=== PATIENT | female | born 1960 | race Caucasian/White ===

== ENCOUNTER 2017-02-05 23:45 | Observation (INO) | payer BC ==
[2017-02-06 00:30] LABS: Hematocrit 37 % (35-47); Hemoglobin 12.9 g/dl (12.0-16.0); Mean Corpuscular HGB Conc 34 g/dl (31-36); Mean Corpuscular Hemoglobin 31 pg (27-31); Mean Corpuscular Volume 89 fL (80-97); Mean Platelet Volume 9 um3 (7.4-10.4); Red Blood Count 4.21 10^6/ul (4.0-5.4); Red Cell Distribution Width 12 % (10.5-15); White Blood Count 9.6 10^3/ul (3.5-10.8)
[2017-02-06 00:47] LABS: Albumin 4.1 g/dL (3.2-5.2); Calcium 9.3 mg/dL (8.6-10.3); EGFR African American 48.2 (>60); EGFR Non-African American 37.5 (>60); Globulin 3.2 g/dL (2-4); Magnesium 2.1 mg/dL (1.9-2.7); Potassium 3.7 mmol/L (3.5-5.0); Total Bilirubin 0.3 mg/dL (0.2-1.0); Total Protein 7.3 g/dL (6.4-8.9)
[2017-02-06 01:32] LABS: Troponin I 2.91 ng/mL (<0.04)
[2017-02-06] MEDS ORDERED: Enoxaparin(*) 80 MG/0.8 ML SYR SUBCUT ONE (01:34)
[2017-02-06] MEDS ORDERED: Clopidogrel TAB* 300 MG PO ONE (01:34)
[2017-02-06] MEDS ORDERED: Metoprolol Tartrate IV* 1 MG/ML 5 ML VIAL IV ONE (01:43)
[2017-02-06] MEDS ORDERED: Albuterol 2.5 MG/3 ML NEB.SOL* (0.083%) INH PRN (02:22)
[2017-02-06] MEDS ORDERED: Acetaminophen TAB* 325 MG PO PRN (02:22)
[2017-02-06] MEDS ORDERED: Ondansetron INJ* 2 MG/ML VIAL IV PRN (02:22)
[2017-02-06] MEDS ORDERED: CMCS: Melatonin (NF) 3 MG TAB PO PRN (02:22)
[2017-02-06] MEDS ORDERED: NS 0.9% 1000 ML* 1,000 ML IV SCH (02:30)
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
--- NOTE | 2017-02-06 03:40 | ED ---
Devon Bhatt Benjamin, scribed for Iram Flood MD on 02/06/17 at 0028 . HPI Chest Pain - HPI Summary HPI Summary: 56yo female BIBA c/o right sided chest pressure. Pt states that she has a pinched nerve in her neck that causes pain on her right side, including right neck, right back, right arm, right leg, and right chest. However, pt has been having this pain for 2 weeks, but tonight pain has gotten a lot worse. Movement and deep breaths worsens the pain and pt reports night sweats. Pain is gone now. Pt was given ASA and NTG by EMS en route, which resolved her CP. Pt did have diaphoresis and SOB with the pain. - History of Current Complaint Chief Complaint: EDChestPainROMI Time Seen by Provider: 02/05/17 23:54 Hx Obtained From: Patient, Family/Natural [employer] Clerk - partner Onset/Duration: Started Weeks Ago, Still Present, Worse Since - tonight Timing: Constant Initial Severity: Moderate Current Severity: None Pain Intensity: 0 Pain Scale Used: 0-10 Numeric Chest Pain Location: Right Anterior Chest Pain Radiates: Yes Chest Pain Radiates To:: Back - right, Arm - right Associated Signs and Symptoms: Positive: Chest Pain, Diaphoresis - Allergy/Home Medications Allergies/Adverse Reactions: Allergies Allergy/AdvReac Type Severity Reaction Status Date / Time No Known Allergies Allergy Verified 02/06/17 00:12 Home Medications: Home Medications NK [No Home Medications Reported] 02/06/17 [History Confirmed 02/06/17] PMH/Surg Hx/FS Hx/Imm Hx Endocrine/Hematology History: Denies: Hx Diabetes, Hx Thyroid Disease Cardiovascular History: Denies: Hx Hypertension Respiratory History: Denies: Hx Asthma, Hx Chronic Obstructive Pulmonary Disease (COPD) GI History: Denies: Hx Ulcer - Surgical History Surgery Procedure, Year, and Place: L leg surgeries x 6. Infectious Disease History: No Infectious Disease History: Denies: Hx Clostridium Difficile, Hx Hepatitis, Hx Human Immunodeficiency Virus (HIV), Hx of Known/Suspected MRSA, Hx Shingles, Hx Tuberculosis, Hx Known/ Suspected VRE, Hx Known/Suspected VRSA, History Other Infectious Disease, Traveled Outside the [place] in Last 30 Days - Family History Known Family History: Negative: Seizure Disorder, Blood Disorder - Social History Lives: With Family Alcohol Use: Weekly Substance Use Type: Reports: None Smoking Status (MU): Former Smoker Amount Used/How Often: 1/2 PPD Review of Systems Positive: Skin Diaphoresis Eyes: Negative ENT: Negative Positive: Chest Pain - radiates to RUE and back Positive: Shortness Of Breath Gastrointestinal: Negative Genitourinary: Negative Musculoskeletal: Negative Skin: Negative Neurological: Negative Psychological: Normal All Other Systems Reviewed And Are Negative: Yes Physical Exam - Summary Physical Exam Summary: VITAL SIGNS: Reviewed. GENERAL: Patient is a well-developed and nourished FEMALE who is lying comfortable in the stretcher. Patient is not in any acute respiratory distress. HEAD AND FACE: No signs of trauma. No ecchymosis, hematomas or skull depressions. No sinus tenderness. EYES: PERRLA, EOMI x 2, No injected conjunctiva, no nystagmus. EARS: Hearing grossly intact. Ear canals and tympanic membranes are within normal limits. MOUTH: Oropharynx within normal limits. NECK: Supple, trachea is midline, no adenopathy, no JVD, no carotid bruit, no c- spine tenderness, neck with full ROM. CHEST: Symmetric, no tenderness at palpation LUNGS: Clear to auscultation bilaterally. No wheezing or crackles. CVS: Tachycardia, S1 and S2 present, no murmurs or gallops appreciated. ABDOMEN: Soft, non-tender. No signs of distention. No rebound no guarding, and no masses palpated. Bowel sounds are normal. EXTREMITIES: FROM in all major joints, no edema, no cyanosis or clubbing. NEURO: Alert and oriented x 3. No acute neurological deficits. Speech is normal and follows commands. SKIN: Dry and warm Triage Information Reviewed: Yes Vital Signs On Initial Exam: Initial Vitals BP 136/80 02/05/17 23:50 Vital Signs Reviewed: Yes - [place] Coma Scale Coma Scale Total: 15 Diagnostics - Vital Signs Vital Signs Temp Pulse Resp BP Pulse Ox 02/06/17 00:12 96 02/06/17 00:02 97.9 F 95 16 125/67 96 02/06/17 00:01 104 20 125/67 94 02/06/17 00:00 104 18 94 02/05/17 23:52 96 21 94 02/05/17 23:50 136/80 - Laboratory Lab Results: Lab Results 02/06/17 02/06/17 02/06/17 Range/Units 00:17 00:17 00:17 WBC 9.6 (3.5-10.8) 10^3/ul RBC 4.21 (4.0-5.4) 10^6/ul Hgb 12.9 (12.0-16.0) g/dl Hct 37 (35-47) % MCV 89 (80-97) fL MCH 31 (27-31) pg MCHC 34 (31-36) g/dl RDW 12 (10.5-15) % Plt Count 251 (150-450) 10^3/ul MPV 9 (7.4-10.4) um3 Neut % (Auto) 68.3 (38-83) % Lymph % (Auto) 21.4 L (25-47) % [place] % (Auto) 7.8 (1-9) % Eos % (Auto) 1.8 (0-6) % Baso % (Auto) 0.7 (0-2) % Absolute Neuts (auto) 6.6 (1.5-7.7) 10^3/ul Absolute Lymphs (auto) 2.0 (1.0-4.8) 10^3/ul Absolute Monos (auto) 0.7 (0-0.8) 10^3/ul Absolute Eos (auto) 0.2 (0-0.6) 10^3/ul Absolute Basos (auto) 0.1 (0-0.2) 10^3/ul Absolute Nucleated RBC 0 10^3/ul Nucleated RBC % 0 INR (Anticoag Therapy) 0.86 (0.77-1.02) APTT 27.5 (26.0-36.3) seconds D-Dimer, Quantitative 294 H (Less Than 230) ng/mL Sodium 135 (133-145) mmol/L Potassium 3.7 (3.5-5.0) mmol/L Chloride 102 (101-111) mmol/L Carbon Dioxide 23 (22-32) mmol/L Anion Gap 10 (2-11) mmol/L BUN 29 H (6-24) mg/dL Creatinine 1.45 H (0.51-0.95) mg/dL Est GFR ( Amer) 48.2 (>60) Est GFR (Non-Af Amer) 37.5 (>60) BUN/Creatinine Ratio 20.0 (8-20) Glucose 133 H (70-100) mg/dL Calcium 9.3 (8.6-10.3) mg/dL Magnesium 2.1 (1.9-2.7) mg/dL Total Bilirubin 0.30 (0.2-1.0) mg/dL AST 30 (13-39) U/L ALT 17 (7-52) U/L Alkaline Phosphatase 115 H (34-104) U/L Troponin I 2.91 H* (<0.04) ng/mL B-Natriuretic Peptide ( - 100) pg/mL Total Protein 7.3 (6.4-8.9) g/dL Albumin 4.1 (3.2-5.2) g/dL Globulin 3.2 (2-4) g/dL Albumin/Globulin Ratio 1.3 (1-3) 02/06/17 Range/Units 00:17 WBC (3.5-10.8) 10^3/ul RBC (4.0-5.4) 10^6/ul Hgb (12.0-16.0) g/dl Hct (35-47) % MCV (80-97) fL MCH (27-31) pg MCHC (31-36) g/dl RDW (10.5-15) % Plt Count (150-450) 10^3/ul MPV (7.4-10.4) um3 Neut % (Auto) (38-83) % Lymph % (Auto) (25-47) % [place] % (Auto) (1-9) % Eos % (Auto) (0-6) % Baso % (Auto) (0-2) % Absolute Neuts (auto) (1.5-7.7) 10^3/ul Absolute Lymphs (auto) (1.0-4.8) 10^3/ul Absolute Monos (auto) (0-0.8) 10^3/ul Absolute Eos (auto) (0-0.6) 10^3/ul Absolute Basos (auto) (0-0.2) 10^3/ul Absolute Nucleated RBC 10^3/ul Nucleated RBC % INR (Anticoag Therapy) (0.77-1.02) APTT (26.0-36.3) seconds D-Dimer, Quantitative (Less Than 230) ng/mL Sodium (133-145) mmol/L Potassium (3.5-5.0) mmol/L Chloride (101-111) mmol/L Carbon Dioxide (22-32) mmol/L Anion Gap (2-11) mmol/L BUN (6-24) mg/dL Creatinine (0.51-0.95) mg/dL Est GFR ( Amer) (>60) Est GFR (Non-Af Amer) (>60) BUN/Creatinine Ratio (8-20) Glucose (70-100) mg/dL Calcium (8.6-10.3) mg/dL Magnesium (1.9-2.7) mg/dL Total Bilirubin (0.2-1.0) mg/dL AST (13-39) U/L ALT (7-52) U/L Alkaline Phosphatase (34-104) U/L Troponin I (<0.04) ng/mL B-Natriuretic Peptide 135 H ( - 100) pg/mL Total Protein (6.4-8.9) g/dL Albumin (3.2-5.2) g/dL Globulin (2-4) g/dL Albumin/Globulin Ratio (1-3) Result Diagrams: 02/06/17 00:17 02/06/17 00:17 Lab Statement: Any lab studies that have been ordered have been reviewed, and results considered in the medical decision making process. - Radiology CXR Xray Interpretation: No Acute Changes Radiology Interpretation Completed By: ED Physician - EKG 0023. Cardiac Rate: NL EKG Rhythm: Sinus Rhythm - 85bpm ST Segment: Normal EKG Interpretation: ST depression&T wave inversion in ok-lateral leads,Q wave in V1,V2, 0208. Cardiac Rate: NL EKG Rhythm: Sinus Rhythm ST Segment: Non-Specific Ectopy: None EKG Interpretation: ST depression&T wave inversion in the anterolateral leads,Q wave in V1,V2. EKG Comparison: No Significant Change - from previous EKG. Chest Pain Course/Dx - Course Course Of Treatment: Pts troponin is 2.91. Pt has been pain free since her ED arrival. Pt has been pain free in the ED. NO SOB. Pt's EKG did show Qwave in the septal leads that is C/W with subacute /Old OH. Pt has acute ischemic changes in the anterolateal leads that is C/W ischemia. Spoke to Dr. Davis (hospitalist) regarding pt's case at 0145 hour. Pt will be admitted. He will come to evaluate the pt. Time: 0230. Repeat EKG showed no change from the first EKG. - Diagnoses Provider Diagnoses: NSTEMI (non-ST elevated myocardial infarction), Acute OH anterior lateral subsequent episode care - Critical Care Time Critical Care Time: 30-74 min - 40 minutes Discharge - Discharge Plan Condition: Critical Disposition: ADMITTED TO [facility] The documentation as recorded by the Devon gay Benjamin accurately reflects the service I personally performed and the decisions made by , Iram Flood MD.
[2017-02-06 07:40] LABS: BUN/Creatinine Ratio 21.9 (8-20); Calcium 8.8 mg/dL (8.6-10.3); EGFR Non-African American 54.4 (>60); Potassium 3.8 mmol/L (3.5-5.0)
[2017-02-06 07:44] LABS: Troponin I 7.14 ng/mL (<0.04)
--- NOTE | 2017-02-06 07:47 | RAD ---
INDICATION: Chest pain COMPARISON: August 22, 2013 TECHNIQUE: An AP portable view obtained at 0020 hours is submitted. FINDINGS: Bones/Soft Tissues: There are no acute bony findings. Cardiomediastinal: The cardiomediastinal silhouette is normal. Lungs: There are no infiltrates. There is minimal left basilar atelectasis. Pleura: There are no pleural effusions. Other: None IMPRESSION: Minimal left basilar atelectasis, otherwise negative.
--- NOTE | 2017-02-06 08:45 | ECHO ---
Patient: BRITTNEY AL Rec#: [id number] : 1960 Date: 02/06/2017 Age: 56y Height: 165.1 cm / 65.0 in Weight: 71.21 kg / 156.9 lbs Sex: F BSA: 1.78 Room#: [facility] Admit Date#: 02/06/2017 Type: Inpatient Referring: Jose Davis MD Reading: Jose Carlos Malone MD Fire Observer: Loan Aguilar RDCS CC: Thania Solo MD Transthoracic Echocardiogram Indication: NSTEMI BP: 98/49 HR: 74 Rhythm: NSR Findings History: Former smoker, pinched nerve in right neck with pain radiating to right chest, MVP. Technical Comments: The study quality is good. Completed at 0820. Left Ventricle: The left ventricular chamber size is normal. There is no left ventricular hypertrophy. There is a focal wall motion abnormality present.The mid to distal anterior, anteroseptal wall are significantly hypokinetic with apical akinesis. There is moderately decreased left ventricular systolic function. The estimated ejection fraction is 35-40%. Abnormal left ventricular diastolic function is observed. Abnormal left ventricular diastolic filling is observed, consistent with impaired relaxation. Left Atrium: The left atrium is mildly dilated. Right Ventricle: The right ventricular cavity size is normal. The right ventricular global systolic function is normal. Right Atrium: The right atrial cavity size is normal. Aortic Valve: The aortic valve is trileaflet. The aortic valve leaflets are mildly thickened. There is moderate aortic regurgitation. There is no evidence of aortic stenosis. Mitral Valve: The mitral valve leaflets are mildly thickened. There is mild mitral regurgitation. There is no evidence of mitral stenosis. Tricuspid Valve: The tricuspid valve leaflets are normal. There is trace to mild tricuspid regurgitation. The right ventricular systolic pressure is estimated at 31 mmHg. There is evidence that pulmonary hypertension may be underestimated. There is no tricuspid stenosis. Pulmonic Valve: The pulmonic valve structure is not well visualized. There is trace to mild pulmonic regurgitation. There is no pulmonic stenosis. Pericardium: There is no significant pericardial effusion. Aorta: There is no dilatation of the ascending aorta. There is no dilatation of the aortic arch. The aortic root is normal in size. Pulmonary Artery: The main pulmonary artery is not well visualized. Venous: The inferior vena cava appears normal in size. There is less than 50% respiratory change in the inferior vena cava dimension. Conclusions The mid to distal anterior, anteroseptal wall are significantly hypokinetic with apical akinesis. There is moderately decreased left ventricular systolic function. The estimated ejection fraction is 35-40%. Abnormal left ventricular diastolic filling is observed, consistent with impaired relaxation. The left atrium is mildly dilated. There is moderate aortic regurgitation. There is mild mitral regurgitation. There is trace to mild tricuspid regurgitation. The right ventricular systolic pressure is estimated at 31 mmHg. There is evidence that pulmonary hypertension may be underestimated. There is trace to mild pulmonic regurgitation. No reports of prior studies are offered for comparison. Measurements Name Value Normal Range RVIDd (AP) 2D 2.4 cm (0.9 - 2.6) RVDdMajor (2D) 3 cm (2.2 - 4.4) RVAW (2D) 0.5 cm (0.2 - 0.5) RAd ISD 4CH 4.1 cm (3.4 - 4.9) RA (A4C)W 3.2 cm (2.9 - 4.6) IVSd (2D) 1 cm (0.6 - 1) LVPWd (2D) 0.9 cm (0.6 - 1) LVIDd (2D) 4.1 cm (3.6 - 5.4) LVIDs (2D) 3.01 cm - LV FS (2D) 26 % (25 - 45) Aortic Annulus 1.6 cm (1.4 - 2.6) Ao root diameter (2D) 2.9 cm (2.1 - 3.5) Ascending Ao 3.1 cm (2.1 - 3.4) Aortic arch 2.4 cm (1.8 - 3.4) LA dimension (AP) 2D 3.2 cm (2.3 - 3.8) LAd ISD 4CH 5.1 cm (2.9 - 5.3) LA ISD 4CH W 4.1 cm (2.5 - 4.5) Name Value Normal Range LA ESV SP 4CH (A/L) 61 ml - LA ESV SP 2CH (A/L) 60 ml - LA ESV BP (A/L) 62 ml - LA ESV BP (A/L) index 35 ml/m2 - LA ESV SP 4CH (MOD) 57 ml - LA ESV SP 2CH (MOD) 59 ml - Name Value Normal Range MV E-wave Vmax 0.68 m/sec - MV deceleration time 189.5 msec - MV A-wave Vmax 0.84 m/sec - MV E:A ratio 0.8 ratio - LV septal e' Vmax 0.06 m/sec - LV lateral e' Vmax 0.07 m/sec - LV E:e' septal ratio 11.33 ratio - LV E:e' lateral ratio 9.71 ratio - Name Value Normal Range AV Vmax 1.66 m/sec - AV VTI 35.1 cm - AV peak gradient 10.99 mmHg - AV mean gradient 6.23 mmHg - LVOT Vmax 1.24 m/sec - LVOT VTI 27.2 cm - LVOT peak gradient 6.16 mmHg - LVOT mean gradient 3.64 mmHg - AR PHT 307 msec - AR peak gradient 48.15 mmHg - Name Value Normal Range TR Vmax 2.4 m/sec - TR peak gradient 23 mmHg - RAP 8 mmHg - RVSP 31 mmHg - IVC diameter 1.46 cm - Name Value Normal Range PV Vmax 1.01 m/sec - PV peak gradient 4.14 mmHg -
[2017-02-06] MEDS ORDERED: Docusate CAP* 100 MG PO SCH (09:00)
[2017-02-06] MEDS ORDERED: Metoprolol Tartrate TAB* 25 MG PO SCH (09:00)
[2017-02-06] MEDS ORDERED: Clopidogrel TAB* 75 MG PO SCH (09:00)
[2017-02-06] MEDS ORDERED: Aspirin EC Low Dose* 81 MG TAB.EC PO SCH (09:00)
[2017-02-06] MEDS ORDERED: Diazepam TAB(*) 5 MG ONE (09:49)
[2017-02-06] MEDS ORDERED: Heparin 2 UNITS/ML IVPREMIX* 2,000 ML IV ONE (10:10)
[2017-02-06] MEDS ORDERED: Lidocaine 1% INJ* 10 MG/ML 30 ML SDV ONE (10:10)
[2017-02-06] MEDS ORDERED: Iodixanol* (CONTRAST) 320 MG/ML 100 ML SDV ONE (10:10)
[2017-02-06] MEDS ORDERED: Midazolam* 1 MG/ML 10 ML VIAL (10 MG) ONE (10:12)
[2017-02-06] MEDS ORDERED: fentaNYL* 50 MCG/ML 2 ML VIAL (100 MCG VIAL) ONE (10:12)
--- NOTE | 2017-02-06 10:14 | PN ---
Subjective Date of Service: 02/06/17 Interval History: Pt is feeling well. She states the chest pain has been resolved since she received nitro with EMS. She denies any SOB. She is prepared to go to carediac catheterization this AM. She is slightly nervous. Objective Active Medications: Acetaminophen (Tylenol Tab*) 650 mg PO Q6H PRN PRN Reason: FEVER/PAIN Last Admin: 02/06/17 04:12 Dose: 650 mg Albuterol (Ventolin 2.5 Mg/3 Ml Neb.Viola*) 2.5 mg INH Q2H PRN PRN Reason: SOB/WHEEZING Aspirin (Aspirin Ec Low Dose*) 81 mg PO DAILY [facility] Last Admin: 02/06/17 07:36 Dose: 81 mg Clopidogrel Bisulfate (Plavix Tab*) 75 mg PO DAILY [facility] Last Admin: 02/06/17 07:36 Dose: 75 mg Docusate Sodium (Colace Cap*) 200 mg PO BID [facility] Last Admin: 02/06/17 09:17 Dose: 200 mg Sodium Chloride (Ns 0.9% 1000 Ml*) 1,000 mls @ 100 mls/hr IV PER RATE [facility] Last Admin: 02/06/17 07:47 Dose: 100 mls/hr Melatonin (Melatonin (Nf)) 3 mg PO BEDTIME PRN; Protocol PRN Reason: Sleep Metoprolol Tartrate (Lopressor Tab*) 25 mg PO BID [facility] Last Admin: 02/06/17 09:17 Dose: 25 mg Ondansetron HCl (Zofran Inj*) 4 mg IV Q6H PRN PRN Reason: NAUSEA Vital Signs - 8 hr 02/06/17 02/06/17 02/06/17 02:20 02:25 02:30 Temperature Pulse Rate 81 80 80 Respiratory 15 16 15 Rate Blood Pressure 111/68 121/75 110/66 (mmHg) O2 Sat by Pulse 97 98 98 Oximetry 02/06/17 02/06/17 02/06/17 02:35 02:40 02:45 Temperature Pulse Rate 81 79 81 Respiratory 15 15 15 Rate Blood Pressure 115/73 116/70 116/66 (mmHg) O2 Sat by Pulse 98 97 98 Oximetry 02/06/17 02/06/17 02/06/17 02:50 02:55 03:00 Temperature Pulse Rate 80 79 84 Respiratory 14 15 14 Rate Blood Pressure 104/65 111/63 113/68 (mmHg) O2 Sat by Pulse 97 97 97 Oximetry 02/06/17 02/06/17 02/06/17 03:05 03:10 03:15 Temperature Pulse Rate 85 81 Respiratory 17 12 Rate Blood Pressure 119/74 100/78 99/81 (mmHg) O2 Sat by Pulse 97 97 Oximetry 02/06/17 02/06/17 02/06/17 03:20 03:30 03:34 Temperature Pulse Rate 81 76 77 Respiratory 15 12 14 Rate Blood Pressure 115/65 116/64 (mmHg) O2 Sat by Pulse 99 98 99 Oximetry 02/06/17 02/06/17 02/06/17 03:35 03:40 03:48 Temperature 98.6 F Pulse Rate 83 82 Respiratory 19 14 Rate Blood Pressure 109/69 112/71 112/71 (mmHg) O2 Sat by Pulse 97 95 Oximetry 02/06/17 02/06/17 02/06/17 03:55 04:00 04:15 Temperature 98.4 F Pulse Rate 78 77 Respiratory 16 19 Rate Blood Pressure 127/61 103/82 (mmHg) O2 Sat by Pulse 96 97 Oximetry 02/06/17 02/06/17 02/06/17 04:30 04:45 05:00 Temperature Pulse Rate 86 76 73 Respiratory 14 15 21 Rate Blood Pressure 104/63 105/54 98/49 (mmHg) O2 Sat by Pulse 97 96 96 Oximetry 02/06/17 02/06/17 02/06/17 05:15 05:30 05:45 Temperature Pulse Rate 75 73 75 Respiratory 17 15 16 Rate Blood Pressure 89/60 86/47 95/48 (mmHg) O2 Sat by Pulse 96 95 96 Oximetry 02/06/17 02/06/17 02/06/17 06:00 06:01 06:15 Temperature Pulse Rate 76 74 Respiratory 15 15 18 Rate Blood Pressure 101/67 (mmHg) O2 Sat by Pulse 96 95 Oximetry 02/06/17 02/06/17 02/06/17 06:30 06:45 07:00 Temperature Pulse Rate 76 72 73 Respiratory 15 18 14 Rate Blood Pressure 102/68 97/57 95/54 (mmHg) O2 Sat by Pulse 97 95 95 Oximetry 02/06/17 02/06/17 02/06/17 07:15 07:30 07:45 Temperature Pulse Rate 85 72 73 Respiratory 16 17 15 Rate Blood Pressure 107/52 104/65 (mmHg) O2 Sat by Pulse 98 95 96 Oximetry 02/06/17 02/06/17 02/06/17 08:00 08:42 08:45 Temperature 98.0 F Pulse Rate 82 76 74 Respiratory 22 15 14 Rate Blood Pressure 103/66 120/66 115/75 (mmHg) O2 Sat by Pulse 98 96 96 Oximetry 02/06/17 02/06/17 02/06/17 09:00 09:15 09:29 Temperature Pulse Rate 72 81 60 Respiratory 12 16 16 Rate Blood Pressure 118/69 123/76 (mmHg) O2 Sat by Pulse 98 99 95 Oximetry 02/06/17 02/06/17 02/06/17 09:30 09:58 10:00 Temperature Pulse Rate 81 74 76 Respiratory 18 16 17 Rate Blood Pressure 130/74 138/79 132/79 (mmHg) O2 Sat by Pulse 98 98 99 Oximetry Oxygen Devices in Use Now: None Appearance: Middle aged female sitting up in bed, NAD Eyes: No Scleral Icterus Ears/Nose/Mouth/Throat: Mucous Membranes Moist Respiratory: Symmetrical Chest Expansion and Respiratory Effort, Clear to Auscultation Cardiovascular: NL Sounds; No Murmurs; No JVD, RRR, No Edema Abdominal: NL Sounds; No Tenderness; No Distention Extremities: No Clubbing, Cyanosis, - - significant scar related to knee reconstructive surgery in past on L Skin: No Rash or Ulcers, No Nodules or Sclerosis Neurological: Alert and Oriented x 3 Result Diagrams: 02/06/17 00:17 02/06/17 06:40 Additional Lab and Data: Lab Results 02/06/17 02/06/17 02/06/17 Range/Units :17 00:17 00:17 WBC 9.6 (3.5-10.8) 10^3/ul RBC 4.21 (4.0-5.4) 10^6/ul Hgb 12.9 (12.0-16.0) g/dl Hct 37 (35-47) % MCV 89 (80-97) fL MCH 31 (27-31) pg MCHC 34 (31-36) g/dl RDW 12 (10.5-15) % Plt Count 251 (150-450) 10^3/ul MPV 9 (7.4-10.4) um3 Neut % (Auto) 68.3 (38-83) % Lymph % (Auto) 21.4 L (25-47) % Snyder % (Auto) 7.8 (1-9) % Eos % (Auto) 1.8 (0-6) % Baso % (Auto) 0.7 (0-2) % Absolute Neuts (auto) 6.6 (1.5-7.7) 10^3/ul Absolute Lymphs (auto) 2.0 (1.0-4.8) 10^3/ul Absolute Monos (auto) 0.7 (0-0.8) 10^3/ul Absolute Eos (auto) 0.2 (0-0.6) 10^3/ul Absolute Basos (auto) 0.1 (0-0.2) 10^3/ul Absolute Nucleated RBC 0 10^3/ul Nucleated RBC % 0 INR (Anticoag Therapy) 0.86 (0.77-1.02) APTT 27.5 (26.0-36.3) seconds D-Dimer, Quantitative 294 H (Less Than 230) ng/mL Sodium 135 (133-145) mmol/L Potassium 3.7 (3.5-5.0) mmol/L Chloride 102 (101-111) mmol/L Carbon Dioxide 23 (22-32) mmol/L Anion Gap 10 (2-11) mmol/L BUN 29 H (6-24) mg/dL Creatinine 1.45 H (0.51-0.95) mg/dL Est GFR ( Amer) 48.2 (>60) Est GFR (Non-Af Amer) 37.5 (>60) BUN/Creatinine Ratio 20.0 (8-20) Glucose 133 H (70-100) mg/dL Calcium 9.3 (8.6-10.3) mg/dL Magnesium 2.1 (1.9-2.7) mg/dL Total Bilirubin 0.30 (0.2-1.0) mg/dL AST 30 (13-39) U/L ALT 17 (7-52) U/L Alkaline Phosphatase 115 H (34-104) U/L Troponin I 2.91 H* (<0.04) ng/mL B-Natriuretic Peptide ( - 100) pg/mL Total Protein 7.3 (6.4-8.9) g/dL Albumin 4.1 (3.2-5.2) g/dL Globulin 3.2 (2-4) g/dL Albumin/Globulin Ratio 1.3 (1-3) 02/06/17 Range/Units 00:17 WBC (3.5-10.8) 10^3/ul RBC (4.0-5.4) 10^6/ul Hgb (12.0-16.0) g/dl Hct (35-47) % MCV (80-97) fL MCH (27-31) pg MCHC (31-36) g/dl RDW (10.5-15) % Plt Count (150-450) 10^3/ul MPV (7.4-10.4) um3 Neut % (Auto) (38-83) % Lymph % (Auto) (25-47) % Snyder % (Auto) (1-9) % Eos % (Auto) (0-6) % Baso % (Auto) (0-2) % Absolute Neuts (auto) (1.5-7.7) 10^3/ul Absolute Lymphs (auto) (1.0-4.8) 10^3/ul Absolute Monos (auto) (0-0.8) 10^3/ul Absolute Eos (auto) (0-0.6) 10^3/ul Absolute Basos (auto) (0-0.2) 10^3/ul Absolute Nucleated RBC 10^3/ul Nucleated RBC % INR (Anticoag Therapy) (0.77-1.02) APTT (26.0-36.3) seconds D-Dimer, Quantitative (Less Than 230) ng/mL Sodium (133-145) mmol/L Potassium (3.5-5.0) mmol/L Chloride (101-111) mmol/L Carbon Dioxide (22-32) mmol/L Anion Gap (2-11) mmol/L BUN (6-24) mg/dL Creatinine (0.51-0.95) mg/dL Est GFR ( Amer) (>60) Est GFR (Non-Af Amer) (>60) BUN/Creatinine Ratio (8-20) Glucose (70-100) mg/dL Calcium (8.6-10.3) mg/dL Magnesium (1.9-2.7) mg/dL Total Bilirubin (0.2-1.0) mg/dL AST (13-39) U/L ALT (7-52) U/L Alkaline Phosphatase (34-104) U/L Troponin I (<0.04) ng/mL B-Natriuretic Peptide 135 H ( - 100) pg/mL Total Protein (6.4-8.9) g/dL Albumin (3.2-5.2) g/dL Globulin (2-4) g/dL Albumin/Globulin Ratio (1-3) Microbiology and Other Data: Microbiology 02/06/17 03:50 Nasal Screen MRSA (PCR)([place]) - Final Nasal Mrsa Negative Assess/Plan/Problems-Billing Ms Boyd is a 56 yo F with a h/o smoking (quit approximately 1 yr ago) presented to the ER with c/o substernal chest pain that was severe and different from what she had been experiencing off an on for the last couple weeks and was admitted for an ACS. - Patient Problems (1) NSTEMI (non-ST elevated myocardial infarction) Current Visit: Yes Status: Acute Code(s): I21.4 - NON-ST ELEVATION (NSTEMI) MYOCARDIAL INFARCTION SNOMED Code(s): 710002502 Comment: The patient's troponin continues to climb. She has been seen by Dr. Malone who plans to pam her to the lab support service tech this AM. She denies any CP at this time. She received 1mg/kg lovenox early this AM in the ER. She was loaded with plavix 300mg and started on ASA and metoprolol. Await results of the cath. (2) LV dysfunction Current Visit: Yes Status: Acute Code(s): I51.9 - HEART DISEASE, UNSPECIFIED SNOMED Code(s): 622312460 Comment: The patient had an echo done this AM that shows moderate LV dysfunction. ? stunning from the cardiac event. Will need to follow this. (3) DVT prophylaxis Current Visit: Yes Status: Acute Code(s): MQH9171 - SNOMED Code(s): 558489471 Comment: lovenox (given in ER) (4) Full code status Current Visit: Yes Status: Acute Code(s): Z78.9 - OTHER SPECIFIED HEALTH STATUS SNOMED Code(s): 388406100
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
[2017-02-06] MEDS ORDERED: Heparin 2 UNITS/ML IVPREMIX* 1,000 ML IV ONE (11:10)
[2017-02-06] MEDS ORDERED: Heparin DRIP 25,000 UNITS(*) 25,000 UNITS/500 ML BAG ONE (11:34)
[2017-02-06] MEDS ORDERED: Heparin(*) 1000 UNIT/ML 10 ML VIAL CATH LAB IV ONE (11:38)
--- NOTE | 2017-02-06 12:44 | TRS ---
CC: Dr. Solo; Dr. Malone * DATE OF ADMISSION: 02/06/2017. DATE OF TRANSFER: 02/06/2017. PRIMARY CARE PROVIDER: Dr. Solo. PRINCIPAL DIAGNOSES: 1. [id number] VT. 2. LV dysfunction. DISCHARGE MEDICATIONS: 1. Tylenol 650 mg p.o. q.6 hours prn pain. 2. Albuterol one neb inhaled q.2 hours prn shortness of breath. 3. Aspirin 81 mg p.o. daily. 4. Plavix 75 mg p.o. daily. 5. Metoprolol Tartrate 25 mg p.o. b.i.d. 6. Zofran 4 mg IV q.6 hours prn nausea. 7. Heparin drip 800 units IV per hour. 8. Normal saline 100 ml/hour. HOSPITAL COURSE: Ms. Boyd is a 56-year-old female who presented to the emergency room on the rn integrity of 02/06/2017 with complaints of substernal chest pain. Over the last couple of weeks, the patient has been having episodes of neck pain radiating down into her chest that she thought was related to a pinched nerve in her neck. On the night prior to admission, the pain became much more severe than it had been and was associated with shortness of breath, nausea and sweats. Upon presentation to the emergency room, the patient was found to have an elevated troponin of 2.91. This has continued to climb and at most recent read at 9:30 a.m. it was 7.69. The patient was seen in consultation by Dr. Malone from Cardiology who took the patient to the cardiac catheterization lab on the morning of 02/06/2017. Unfortunately, he did not feel that he could perform the needed angioplasty and stenting safely at [facility] as there is no Vascular Surgery back-up. It has been recommended that the patient be transferred to have this performed at a facility with vascular surgery. The patient is in agreement with transfer. She will be transferred to [facility]. Dr. Vaughn is kindly accepting the patient in transfer. At the time of transfer, the patient is stable. She remains on a Heparin drip and normal saline. The patient has been chest pain free since her arrival to the emergency room. FOLLOW-UP CONCERNS: The patient is being transferred to [facility] today, 02/06/2017. ACTIVITY LEVEL: Bed rest. CONDITION ON TRANSFER: Stable. Thirty-five minutes were spent on the transfer of this patient. [id number]/[facility] #: [id number] ANA
[2017-02-06 13:16] VITALS: BP 128/79
--- NOTE | 2017-02-07 13:26 | CATH ---
CC: Thania Solo MD * CARDIAC CATHETERIZATION REPORT: DATE OF PROCEDURE: 02/06/17 - ROOM #ICU-11 INDICATION FOR THE PROCEDURE: The patient with acute coronary syndrome, abnormal cardiac troponins with a marked anterior wall motion abnormality, assess for significant coronary artery disease. PROCEDURE: Coronary arteriography. The patient was interviewed and examined in the intensive care unit where the risks and benefits were explained. She understood them and wished to proceed. 1. The approach was the right femoral artery. The introducer was a 5-Micronesian Orquidea 11 cm sheath. 2. The diagnostic catheters were 5-Micronesian FL4 curve left coronary diagnostic catheter and a 5-Micronesian FR4 curve right coronary catheter. SHEATH MANAGEMENT: The sheath was sutured in place for transport to the [facility] for further intervention. MEDICATIONS GIVEN: In the labeling machine operator, included 3500 mg bolus of heparin at the end of the case and an 800 unit per hour drip started with the arterial sheath sutured in place. PROCEDURE IN DETAIL: The patient was brought to the cardiovascular laboratory where a formal time-out was performed. The patient was prepped and draped in a sterile fashion. Right groin area was anesthetized with lidocaine and under ultrasound guidance, the right femoral artery was entered and sheath was placed. An injection was made into the right femoral sheath to assess position of the sheath. It was found to be a high stick noted. Diagnostic cardiac catheterization was then performed. In light of the multivessel disease as well as the inability to have vascular surgery coverage for sheath removal because of the high stick, a decision was made to transport the patient to the [facility] (the patient is a patient of the [facility]). This decision was made after discussion with Dr. Roberts, ware tester up at [facility], who offered his opinion regarding the safety of performing this procedure at a hospital without Vascular Surgery or Cardiovascular Surgery. The sheath was sutured in place and a pressure IV was placed to the sheath to maintain patency. Heparin therapy was started as above. The total contrast used was 50 cc of Omnipaque dye. The radiation exposure included 3.5 minutes of fluoro time. The air kerma radiation was 386 milligray. The DAP radiation was 2162 microgray per meter square. RESULTS: CORONARY ARTERIOGRAPHY: A. Left coronary artery. 1. Left main: There was no significant stenosis seen throughout the mid left main 2. Left anterior descending artery: The left anterior descending artery supplied a thin first diagonal branch followed by a moderate sized mid diagonal branch. The LAD then continued to the apical region. There was a critical proximal 90% to 95% lesion with calcium present seen just after the first septal lehr cutter. Past this point, there was another area of 40% narrowing noted in the mid segment. The artery then continued to the apical region and inferior wall. 3. Circumflex artery - a nondominant vessel. The first high obtuse marginal branch is totally occluded with faint retrograde filling showing a bifurcating thin branch. The true caliber could not be assessed due to the total occlusion. After this point, there was a thin second short obtuse marginal branch followed by a slightly larger, but still small caliber third obtuse marginal branch. The distal vessel tapered to a 75% to 80% obstruction leading to a low lying obtuse marginal branch after which there was a subtotal occlusion to a lower branch underneath that that appeared to be thin in nature. B. Right coronary artery. A dominant vessel supplying the PDA and a first and second thin posterior left ventricular branch followed by a last moderate sized posterior left ventricular branch. She has calcification seen in the proximal portion of the vessel with mild 10% narrowing. The proximal to mid portion just prior to and acute marginal branch had a narrowing in the right coronary artery of approximately 40%. The rest of the vessel had mild 25% to 30 % narrowing seen. The PDA had a proximal to mid narrowing of 50%. RIGHT FEMORAL ARTERIOGRAM VIA SHEATH: -revealed a high entry point in the femoral artery. Mild to moderate disease was noted involving the continuation after the common femoral artery and both branches of the deep and superficial femoral artery. OVERALL ASSESSMENT: Significant coronary artery disease involving a critically stenosed proximal LAD as well as totally occluded first obtuse marginal branch and narrowed small caliber low lying obtuse marginal branches and subtotally occluded lower branch as described above. Moderate disease in the PDA of the right coronary artery. Given the multiple diffuse disease, considerations could be for bypass surgery given the decreased EF of 35% to 40%, but the caliber of the first obtuse marginal branch and the lower obtuse marginal branches are questionable for bypass. Given the high stick of the femoral artery and the lack of Vascular Surgery at our institution, concern over sheath removal may be an issue with this. As such, a discussion was made with the interventionalist, Dr. Roberts, of [facility] (supervising institution of our PCI program), who did not feel proceeding with intervention with sheath upsizing to 6-Micronesian sheath and eventual removal should be performed at the institution without Vascular Surgery immediately available in the event of bleeding. As such, discussion was made with Dr. Wyatt Lanza at the [facility] who graciously accepted the patient in transfer to be transferred directly to the cardiovascular laboratory for Dr. Vaughn to perform the procedure. I personally called Dr. Vaughn and discussed the case at length including the results and the sheath issue. He understood all of this at that time and thanked me for having personally called him to discuss the patient. We will await the results from the [facility] and Dr. Vaughn personally said he would call me to tell me the results. [id number]/CPS #: [id number] MTDD
== END 2017-02-06 12:15 | disposition short-term general hospital (02) | DRG 190 ==
LOC: ED 23:45 → INTOOBSV 02-06 02:19 → ICU 02-06 02:19
PROVIDERS: ADMIT Hospitalist; ATTEND Hospitalist
DX: I25.10 Atherosclerotic heart disease of native coronary artery without angina pectoris (principal); I10 Essential (primary) hypertension; Z87.891 Personal history of nicotine dependence; Z82.49 Family history of ischemic heart disease and other diseases of the circulatory system
CPT/HCPCS: 36415; 71010; 80048; 80053; 83735; 83880; 84484; 85025; 85379; 85610; 85730; 87641; 93005; 93306; 93454; 99156; 99157; A9270-GY; C1769; C1887; J1644; J1650; J2250; J3010; J3490

== ENCOUNTER 2019-03-13 08:25 | Emergency (ER) | payer BC ==
[2019-03-13 08:34] VITALS: BP 197/98
[2019-03-13] MEDS ORDERED: Ketorolac INJ* 30 MG/ML 1 ML VIAL IM ONE (08:35)
--- NOTE | 2019-03-13 08:38 | UC ---
Hand/Wrist HPI - HPI Summary HPI Summary: Patient is a 58-year-old female who slipped and fell on ice this a.m. injuring her left wrist. She is right handed. She denies any other injuries. She denies any previous injury to left wrist. - History Of Current Complaint Chief Complaint: UCUpperExtremity Stated Complaint: WRIST INJURY Time Seen by Provider: 03/13/19 08:32 Hx Obtained From: Patient Onset/Duration: Sudden Onset Severity Initially: Moderate Severity Currently: Moderate Pain Intensity: 7 Pain Scale Used: 0-10 Numeric Character Of Pain: Aching, Throbbing Aggravating Factor(s): Movement Alleviating Factor(s): Rest Related History: Dominant Hand Right Hands: 1 - deformity/tenderness 2 - 1 cm superficial appearing laceration as noted - Allergies/Home Medications Allergies/Adverse Reactions: Allergies Allergy/AdvReac Type Severity Reaction Status Date / Time No Known Allergies Allergy Verified 03/13/19 08:34 Home Medications: Home Medications Atorvastatin* [Lipitor 40 MG*] 1 tab PO DAILY 03/13/19 [History Confirmed ] Carvedilol TAB* [Coreg TAB*] 1 tab PO DAILY 03/13/19 [History Confirmed 03/13/19 ] Losartan TAB* [Cozaar TAB*] 1 tab PO DAILY 03/13/19 [History Confirmed 03/13/19] PMH/Surg Hx/FS Hx/Imm Hx Previously Healthy: Yes Endocrine History: Dyslipidemia Cardiovascular History: Hypertension, Myocardial Infarction - Surgical History Surgical History: Yes Surgery Procedure, Year, and Place: L leg surgeries x 6. - Family History Known Family History: Positive: Hypertension Negative: Seizure Disorder, Blood Disorder - Social History Alcohol Use: Weekly Substance Use Type: None Smoking Status (MU): Former Smoker Amount Used/How Often: 1/2 PPD - Immunization History Most Recent Influenza Vaccination: 2016 Most Recent Pneumonia Vaccination: never Review of Systems All Other Systems Reviewed And Are Negative: Yes Constitutional: Positive: Negative Skin: Positive: Negative Eyes: Positive: Negative ENT: Positive: Negative Respiratory: Positive: Negative Cardiovascular: Positive: Negative Gastrointestinal: Positive: Negative Genitourinary: Positive: Negative Motor: Positive: Negative Neurovascular: Positive: Negative Musculoskeletal: Positive: Arthralgia - LEFT WRIST, Decreased ROM - LEFT WRIST, Edema - LEFT WRIST Neurological: Positive: Negative Psychological: Positive: Negative Physical Exam Triage Information Reviewed: Yes Appearance: Well-Appearing, No Pain Distress, Well-Nourished Vital Signs: Initial Vital Signs Temp 97.8 F 03/13/19 08:32 Pulse 81 03/13/19 08:32 Resp 18 03/13/19 08:32 BP 197/98 03/13/19 08:32 Pulse Ox 99 03/13/19 08:32 Vital Signs Reviewed: Yes Eyes: Positive: Conjunctiva Clear ENT: Positive: Hearing grossly normal. Negative: Nasal congestion, Nasal drainage, Trismus, Muffled voice, Hoarse voice Neck exam: Other - no dental injury Neck: Positive: Supple Respiratory: Positive: Lungs clear, Normal breath sounds, No respiratory distress, No accessory muscle use Cardiovascular: Positive: RRR, No Murmur Musculoskeletal: Positive: Other: - see image/distal N/Vintact Neurological: Positive: Alert Psychological Exam: Normal Skin Exam: Other - see image Procedures - Splinting Left Upper Extremity Hand-Made Type: orthoglass Splint: sugar-tong Pre-Proc Neuro Vasc Exam: normal Post-Proc Neuro Vasc Exam: normal Splint Applied by Provider: Kevyn [facility] - Radiology No standard instances Radiology Interpretation Completed By: Radiologist Summary of Radiographic Findings: COMMINUTED FRACTURE OF THE DISTAL RADIUS WITH ARTICULAR EXTENSION. Hand/Wrist Course/Dx - Course Course Of Treatment: I spoke with Dr. Herman. Because laceration not overlying radius and bleeding is bright red...not dark with fat globules concern for open fracture is negated. She advises cleaning and dressing - Differential Dx/Diagnosis Provider Diagnosis: Fracture of distal end of left radius Discharge ED - Sign-Out/Discharge Documenting (check all that apply): Patient Departure All imaging exams completed and their final reports reviewed: Yes - Discharge Plan Condition: Stable Disposition: HOME Patient Education Materials: Wrist Fracture in Adults (ED) Referrals: Thania Solo MD [Primary Care Provider] - Vickey Tse MD [Medical Doctor] - 3 Days Additional Instructions: rest splint sling advil or aleve call for any concerns or if you have trouble making a Saturday appt with ortho - Billing Disposition and Condition Condition: STABLE Disposition: Home
[2019-03-13] MEDS ORDERED: Tetan/Diph/Pertus SYR(Tdap)* 0.5 ML SYR(BOOSTRIX) use SYR contains LATEX IM ONE (09:19)
== END 2019-03-13 09:49 | disposition home or self-care (01) ==
LOC: UCEAST 08:25
DX: S52.502A Unspecified fracture of the lower end of left radius, initial encounter for closed fracture (principal); I10 Essential (primary) hypertension; E78.5 Hyperlipidemia, unspecified; Z79.899 Other long term (current) drug therapy; Z87.891 Personal history of nicotine dependence; W00.0XXA Fall on same level due to ice and snow, initial encounter; Y92.9 Unspecified place or not applicable
CPT/HCPCS: 90471; 90715; 96372; 99213; G0463; J1885

== ENCOUNTER 2019-03-19 09:57 | Day surgery (SDC) | payer BC ==
[~2019-03-19 09:57] MED LIST: Buffered Lidocaine 1% SYRIN* 1 ML/SYRINGE INTRADERM ONE; Dexamethasone IV* 4 MG/ML 1 ML (4 MG) IV SLOW PU ONE; Famotidine IV* 10 MG/ML 2 ML (20 mg) IV ONE; Lactated Ringers 1000 ML Bag* 1,000 ML IV SCH
[2019-03-19] MEDS ORDERED: ceFAZolin 2 GM PREMIX in ORs 2 GM/50 ML BAG ONE (10:21)
[2019-03-19] MEDS ORDERED: Famotidine IV* 10 MG/ML 2 ML (20 mg) ONE (10:22)
[2019-03-19] MEDS ORDERED: Dexamethasone IV* 4 MG/ML 1 ML (4 MG) ONE (10:22)
[2019-03-19] MEDS ORDERED: fentaNYL* 50 MCG/ML 2 ML VIAL (100 MCG VIAL) ONE (10:55)
[2019-03-19] MEDS ORDERED: Lidocaine 2% PF * 5 ML VIAL ONE (10:55)
[2019-03-19] MEDS ORDERED: Midazolam* 1 MG/ML 2 ML VIAL (2 MG) ONE (10:55)
[2019-03-19] MEDS ORDERED: KETAMINE HCL* 50 MG/ML 10 ML VIAL ONE (11:36)
[2019-03-19] MEDS ORDERED: Scopolamine 1.5 mg* PATCH ONE (11:43)
[2019-03-19] MEDS ORDERED: Scopolamine 1.5 mg* PATCH TRANSDERM SCH (12:00)
[2019-03-19] MEDS ORDERED: Phenylephrine 40 MCG/ML SYRINGE ONE (13:07)
[2019-03-19] MEDS ORDERED: Propofol* 10 MG/ML 20 ML BTL ONE (13:44)
[2019-03-19] MEDS ORDERED: HYDROmorphone INJ1* 1 MG/ML SYRINGE ONE (13:45)
[2019-03-19] MEDS ORDERED: Ondansetron INJ* 2 MG/ML VIAL ONE (13:47)
[2019-03-19] MEDS ORDERED: Bupivacaine 0.25% SDV* 30 ML ONE ×2 (13:47→13:51)
[2019-03-19] MEDS ORDERED: HYDROmorphone INJ1* 1 MG/ML SYRINGE IV PRN (13:57)
[2019-03-19] MEDS ORDERED: Naloxone* 0.4 MG/ML 1 ML VIAL IV PRN (13:57)
[2019-03-19] MEDS ORDERED: DiMENhydriNATE IV* 50 MG/ML VIAL IV PUSH PRN (13:57)
[2019-03-19] MEDS ORDERED: fentaNYL* 50 MCG/ML 2 ML VIAL (100 MCG VIAL) IV PRN (13:57)
[2019-03-19] MEDS ORDERED: Acetaminophen IV 1GM/100ML * 1,000 MG/100 ML VIAL IVPB ONE (13:57)
[2019-03-19] MEDS ORDERED: DiMENhydriNATE IV* 50 MG/ML VIAL ONE (15:09)
[2019-03-19] MEDS ORDERED: Acetaminophen IV 1GM/100ML * 100 ML ONE (15:14)
[2019-03-19 15:46] VITALS: BP 158/69
--- NOTE | 2019-03-20 02:45 | OP ---
DATE OF OPERATION: 03/19/19 - [facility] DATE OF : 62 SURGEON: Vickey Tse MD LAND MANAGEMENT SUPERVISOR: KIERA Veras. An retail assistant store manager was needed for the procedure to aid in positioning of the arm and retraction. ANESTHESIOLOGIST: Dr. Vizcaino. ANESTHESIA: General. PRE-OP DIAGNOSIS: Left intraarticular distal radius fracture. POST-OP DIAGNOSIS: Left intraarticular distal radius fracture. OPERATIVE PROCEDURE: Left wrist distal radius open reduction and internal fixation of multifragmentary, greater than 3-fragment intraarticular distal radius fracture. INDICATIONS: Ms. Boyd has a very displaced distal radius fracture. We had talked about treatment options, risks, and benefits. She had wanted to proceed with surgery. ESTIMATED BLOOD LOSS: 10 mL. COMPLICATIONS: None. FINDINGS: See above and below. DESCRIPTION OF PROCEDURE: Ms. Boyd was seen in the preoperative holding area. The correct side, site, and procedure were identified. We came back to the operating room. The arm was prepped and draped in the usual fashion and a time-out was performed. The arm was placed in 10 pounds of traction using the Arthrex hand blair. The arm had been exsanguinated and the tourniquet inflated. I made a longitudinal incision over the FCR tendon distally, dissection was carried down. The FCR tendon sheath was incised. The tendon was retracted ulnarly. The subsheath was incised. The interval between the FPL tendon and the radial artery was utilized to gain access to the distal radius. The pronator quadratus was released and reflected ulnarly. The brachioradialis was released. A bit of hematoma and soft callus that was developing was debrided and excised and the bones were mobilized. There was a radial styloid piece that was separate from the remainder of the articular surface. The other pieces were all reasonably low lying, but that piece was mal-reduced and so I reduced it and placed one traversing 1.25 mm K-wire to secure in place. I then reduced the shaft to the articular fragments. This was held in place while a Synthes variable angle distal radius plate was selected and pinned into place. I placed one screw in the oblong hole. This was a 2.4 mm cortical screw. The mini C- arm fluoroscopy was then brought in. The reduction and plate placement was confirmed. I then placed the distal row screws with a combination of locking and variable angle locking screws. The shaft screws were all 2.4 mm cortical screws. Once I had all the screws in place and all the wires removed, I went ahead and irrigated out the wound. The final mini C-arm fluoroscopy confirmed the alignment and reduction plate placement. The pronator was repaired with 3- 0 Vicryl suture. The skin was closed with 4-0 Monocryl and Steri-Strips. Marcaine 0.25% was infiltrated all about the operative area. The patient was then placed in a short- arm plaster wrist splint and taken to the recovery room in stable condition. [id number] #: [id number] ANA
== END 2019-03-19 16:05 | disposition home or self-care (01) ==
LOC: OREAST 09:57
PROVIDERS: ATTEND Orthopaedic Surgery Hand Surgery
DX: S52.572A Other intraarticular fracture of lower end of left radius, initial encounter for closed fracture (principal); E78.5 Hyperlipidemia, unspecified; I25.2 Old myocardial infarction; I10 Essential (primary) hypertension; I73.9 Peripheral vascular disease, unspecified; W00.0XXA Fall on same level due to ice and snow, initial encounter; Y93.89 Activity, other specified; Y92.9 Unspecified place or not applicable; Z87.891 Personal history of nicotine dependence; Z95.5 Presence of coronary angioplasty implant and graft
CPT/HCPCS: 76000; A9270-GY; C1713; C1776; J0690; J1100; J1170; J1240; J2250; J2405; J2704; J3010; J3490